=== PATIENT | male | born 1950 | race Caucasian/White ===

== ENCOUNTER 2016-11-16 14:45 | Outpatient (CLI) ==
--- NOTE | 2016-11-16 15:28 | DI ---
Examination: Two radiographic images of the chest. Comparison: None available. Reason for study: Cough. FINDINGS: No pneumothorax, pleural effusion, or focal consolidation. The cardiac silhouette is not enlarged. Likely old granulomatous disease in the lung parenchyma and perihilar region. Impression: 1. No acute cardiopulmonary findings. 2. Likely granulomatous disease in the lung parenchyma. Recommend follow-up radiograph to document stability.
== END 2016-11-16 14:46 | disposition home or self-care (01) ==
LOC: RAD 14:45
PROVIDERS: ATTEND Family Medicine
DX: R05 Cough (principal)

== ENCOUNTER 2016-11-19 08:32 | Outpatient (CLI) ==
--- NOTE | 2016-11-19 09:56 | US ---
EXAM: RENAL ULTRASOUND, BILATERAL HISTORY: Decreased renal function FINDINGS: Ultrasound renal, bilateral. Macias-scale ultrasound and color Doppler imaging was perform ed. The right kidney measures 11.0 x 4.3 x 3.9 centimeters. The left kidney measures 10.1 x 5.1 x 4.0 centimeters. General cortical echogenicity and volume are normal for age. No solid or cystic cortical masses. N o hydronephrosis is identified. The visualized urinary bladder was grossly normal. IMPRESSION: Findings within normal limits.
== END 2016-11-19 08:33 | disposition home or self-care (01) ==
LOC: RAD 08:32
PROVIDERS: ATTEND Family Medicine
DX: N28.9 Disorder of kidney and ureter, unspecified (principal)
CPT/HCPCS: 76770

== ENCOUNTER 2016-11-26 13:28 | Outpatient (CLI) ==
--- NOTE | 2016-11-26 14:16 | DI ---
EXAM: Three views of the sacrum and coccyx. History: Coccygeal pain. Findings: No acute fracture or dislocation. Partial sacralization of L5 on the left. Small nonspe cific pelvic calcifications measuring up to 3 mm. Impression: No acute fracture.
== END 2016-11-26 13:29 | disposition home or self-care (01) ==
LOC: RAD 13:28
PROVIDERS: ATTEND Family Medicine
DX: M53.3 Sacrococcygeal disorders, not elsewhere classified (principal)

== ENCOUNTER → 2016-12-23 | Outpatient (POV) | LOC: OUTPT 00:01 | PROVIDERS: ATTEND Otolaryngology | DX: H91.90 Unspecified hearing loss, unspecified ear (principal) | CPT/HCPCS: 92557; 92567 ==

== ENCOUNTER 2017-01-05 08:47 | Day surgery (SDC) ==
[2017-01-05] MEDS ORDERED: LIDOCAINE 1% 20 ML MDV ID ONE (09:45)
[2017-01-05] MEDS ORDERED: LIDOCAINE 2% 20 ML MDV ONE (09:45)
[2017-01-05] MEDS ORDERED: DIPRIVAN 20 ML VIAL IVP ONE (11:15)
[2017-01-05] MEDS ORDERED: LIDOCAINE HCL 2% LUER-JET ONE (11:15)
[2017-01-05] MEDS ORDERED: SUBLIMAZE ONE (11:15)
[2017-01-05] MEDS ORDERED: VERSED ONE (11:15)
[2017-01-05 12:51] VITALS: BP 141/90; TEMP 98.1
--- NOTE | 2017-01-06 09:25 | OP ---
INDICATIONS FOR PROCEDURE: 66 year old gentleman presents for endoscopy and colonoscopy. 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 Jim Mancuso. He presents now for surveillance exams. MEDICATIONS: SEE ANESTHESIA NOTES. PROCEDURE: 1. ENDOSCOPY, ESOPHAGEAL BIOPSY. 2. COLONOSCOPY, SNARE POLYPECTOMY AND ENDOCLIP THERAPY. REPORT: The risks, benefits, alternatives and limitations were discussed in detail with the patient. Informed consent was obtained. After adequate sedation was achieved, the video endoscope was introduced in the posterior pharynx and esophagus under direct vision and easily advanced down to the second portion of the duodenum. I then slowly withdrew. The duodenal mucosa appeared unremarkable as did the duodenal bulb. Antrum body is relatively unremarkably. The scope was retroflexed to look at the cardia and fundus which was unremarkable. The scope was anteflexed and withdrawn back through the esophagus. GE junction and gastric folds began at 40cm but there was tongues of gastric type mucosa and islands extended up to 38.5cm. This is consistent with short segment Leigh's disease. Obtained four counter biopsies at 40cm then again at the top the of the tongues at 38.5cm and the two islands. These were placed in a separate jar and marked 38cm. Then remained esophagus appeared unremarkable and the patient tolerated this procedure well with stable vital signs and pulse oximetry throughout. The patient's bed was turned and a digit rectal exam revealed good tone and no masses. The colonic scope was introduced in the rectum and advanced under directed visual guidance to the cecum. The cecum was identified by the appendiceal orifice and IC valve. In the cecum there was a diminutive 4mm polyp that I destroyed using a snare. I then slowly withdrew the scope in a circumferential manner and the examined the mucosa quite carefully. I looked on the proximal distal sides of the folds and flexures as best as possible. Should point out that his prep is fair with mucousy adherent stool present throughout the entire colon. This was consistent with someone not taking the morning portion of the prep. The mucous was washed off as best as possible as I advanced the scope and then again as I withdrew. In the ascending colon Identified three polyps all sessile. Two of these were roughly 7mm size and removed by snare technique and the other one about 5mm size and was removed and destroyed by snare. At the hepatic flexure area there is eight polyps in total and range in size from 5mm to largest was 11mm all slightly raised and sessile, all removed by snare technique and placed in the same pathology jar. The eighth polyp which was on the distal side of the hepatic flexure did have a scant amount of bleeding post removal. I therefore placed an Endoclip across this polypectomy site and there was no additional bleeding I would estimate 1cc of bleed was lost. Withdrawing the scope further revealed three polyps in the descending colon area there were in size from 5-7mm and slightly raise, all three were removed by snare technique. In the distal descending there was a 5mm sessile polyp that I removed by snare technique and in the sigmoid there was several small-mouth diverticula scattered through. The scoped was retroflexed to look at the anal canal which was unremarkable. The patient tolerated the procedure well with stable vital signs and pulse oximetry throughout. The withdraw time was 20 minutes and 0 seconds. IMPRESSION: 1. Short segment Leigh's as above 2. 16 colonic polyps removed 3. Sigmoid diverticulosis 4. Fair prep RECOMMENDATIONS: 1. Strict reflux precautions 2. Await esophageal biopsy results and if there is no evidence of dysplasia or atypia recommend repeat endoscopy examination again in 3 years 3. Await colon polyp pathology with the findings of these multiple polyps and his prep I suggested a repeat colonoscopy examination again one year sooner if sign and symptoms would indicate otherwise. 4. I will see him back in the office as needed CC: Dr. Jaye EDGE
== END 2017-01-05 12:52 | disposition home or self-care (01) ==
LOC: SURG 08:47
PROVIDERS: ATTEND Internal Medicine Gastroenterology
DX: Z09 Encounter for follow-up examination after completed treatment for conditions other than malignant neoplasm (principal); Z86.010 Personal history of colon polyps; D12.4 Benign neoplasm of descending colon; D12.2 Benign neoplasm of ascending colon; D12.3 Benign neoplasm of transverse colon; K63.5 Polyp of colon; D13.0 Benign neoplasm of esophagus; K22.70 Barrett's esophagus without dysplasia; K57.30 Diverticulosis of large intestine without perforation or abscess without bleeding

== ENCOUNTER 2018-06-27 07:50 | Outpatient (CLI) | payer OTHER ==
--- NOTE | 2018-06-27 10:05 | MRI ---
EXAM: MRI lumbar spine without IV contrast. DATE: June 2018. HISTORY: Chronic low back pain with left side sciatica. TECHNIQUE: Sagittal and axial T1W and T2W sequences of the lumbar spine along with sagittal IR and c oronal T2W sequences were obtained using 1.2 Ella magnet. No IV contrast. COMPARISON: Chest x-ray 16 November 2016. MRI L-spine 05 January 2011. FINDINGS: There are four classic [id number] lumbar vertebra. Previous chest x-ray demonstrates twelfth thoracic vertebra with classic paired ribs. At the thoracolumbar junction, there is a trans itional vertebra with either hypoplastic ribs or unusual transverse processes. On previous MRI, this vertebra was considered to be any thoracic vertebra, and therefore will be referred to as T13. At t he lumbosacral junction, there is pseudoarticulation of the left L5 transverse process with the left S1 sacral ala. This correlates with previous MRI finding and nomenclature. No lumbar scoliosis is evident. A 2.3 mm anterior subluxation of L4 relative to L3 is noted. No oth er subluxation, acute fracture, or osseous malignancy is demonstrated. There are questionable bilate ral L5 pars defects. Small osteophytes are demonstrated at L3-4 and L4-5. Lumbar vertebrae normal i n height. Bone marrow signal is overall normal. Mild L3-4 and mild/moderate L5-S1 disc space narrow ing is detected. No acute sacral fracture or stress reaction is apparent. Anterior osteophytes at t he right SI joint suggest minor arthritis. Conus medullaris terminates at L1. Visible spinal cord r eveals no syrinx, cord edema, myelomalacia, or neoplasm. A few descending colon diverticuli are suspe cted. Segmental analysis: T12-13: No disc protrusion, central stenosis or foraminal stenosis. T13 - L1: No disc protrusion, central stenosis or foraminal stenosis. L1-2: No disc protrusion, central stenosis or foraminal stenosis. L2-3: No disc protrusion, central stenosis or foraminal stenosis. L3-4: Minor anterolisthesis of L4, small concentric disc bulge, and minor facet arthropathy cause mi ld bilateral foraminal narrowing. Tiny left facet effusion is present. No central canal stenosis. L4-5: Moderate concentric disc bulge, minor right facet arthropathy, and mild/moderate left facet ar thropathy cause moderate narrowing at the opening to each foramen. Small left facet effusion is prese nt. No central canal stenosis. L5-S1: Partial sacralization of L5. Minor right and mild left facet arthropathy is seen. Questiona ble left L5 pars interarticularis defect. There is slight bilateral posterior foraminal encroachment . No central canal stenosis. IMPRESSIONS: 1. Four classic lumbar vertebra. Transitional L5 (partial sacralization). Transitional T13 vertebr a. 2. Lumbar spine mild spondylosis, mild facet arthropathy, and mild DDD. 3. Multilevel lumbar foraminal stenoses. No distinct nerve root compression. 4. No lumbar spine central canal stenosis. 5. Minimal descending colon diverticulosis.
== END 2018-06-27 07:51 | disposition home or self-care (01) ==
LOC: RAD 07:50
PROVIDERS: ATTEND Family Medicine
DX: M54.42 Lumbago with sciatica, left side (principal); G89.29 Other chronic pain